=== PATIENT | female | born 1995 | race Caucasian/White ===

== ENCOUNTER 2022-08-19 19:34 | Emergency (ER) | payer BC ==
[~2022-08-19] VITALS: Ht 149.9 cm; Wt 62.7 kg
[2022-08-19 19:40] VITALS: TEMP 97.8
[2022-08-19 19:59] LABS: COLLECTION METHOD CLEAN CATCH
[2022-08-19 20:04] LABS: BASO % 0.2 % (0.0-2.0); EOS % 0.3 % (0.0-4.0); GRAN # 11.5 K/mm3 (1.4-6.5); GRAN % 89.2 % (42.2-75.2); HEMATOCRIT 46.1 % (37.0-47.0); HEMOGLOBIN 15.6 g/dl (12.5-16.0); LYMPH # 0.8 K/mm3 (1.2-3.4); LYMPH % 6.1 % (20.0-51.0); MEAN CELL VOLUME 83 fl (80.0-100.0); MEAN CORPUSCULAR HEMOGLOBIN 28 pg (27-31); MEAN CORPUSCULAR HGB CONC 34 g/dl (33.0-37.0); MEAN PLATELET VOLUME 10.2 fl (7.4-10.4); MONO # 0.5 K/mm3 (0.1-0.6); PLATELET COUNT 199 K/mm3 (130-400); RED BLOOD COUNT 5.58 M/mm3 (4.10-5.30); REDCELL DISTRIBUTION WIDTH-CV 12.1 % (11.5-14.5)
[2022-08-19 20:08] LABS: MUCOUS Present (NOT PRESENT); PH 5.5 (5.0-8.5); SQUAMOUS EPITHELIAL 0-2 /hpf (0-10); URINE APPEARANCE Clear (CLEAR/HAZY); URINE BACTERIA Rare /hpf (NONE SEEN); URINE BLOOD Negative (NEGATIVE); URINE COLOR Yellow (YELLOW); URINE GLUCOSE Negative (NEGATIVE); URINE KETONE 4+ (NEGATIVE); URINE NITRATE Negative (NEGATIVE); URINE PROTEIN(semi-quant) Negative (NEGATIVE); URINE RBC 0-2 /hpf (0-2); URINE UROBILINOGEN 0.2 E.U/dL (0.2-1.0)
[2022-08-19 20:22] LABS: ALBUMIN 4.6 gm/dL (3.5-5.0); BILIRUBIN,TOTAL 0.7 mg/dL (0.2-1.2); C-REACTIVE PROTEIN 0.1 mg/dL (0.00-0.50); CALCIUM 9.1 mg/dL (8.4-10.2); CREATININE, serum 0.67 mg/dL (0.57-1.11); POTASSIUM 3.5 mmol/L (3.5-4.5); TOTAL PROTEIN 8.2 gm/dL (6.2-8.1)
[2022-08-19] MEDS ORDERED: ZOFRAN ODT4 MG PO (23:23)
[2022-08-20 00:02] VITALS: BP 122/84; PULSE 104
== END 2022-08-20 00:02 | disposition home or self-care (01) ==
LOC: COL.ER 19:34
PROVIDERS: Nurse Practitioner
DX: R10.31 Right lower quadrant pain (principal); R11.2 Nausea with vomiting, unspecified
CPT/HCPCS: J1885; J2405; J7030; Q9967